=== PATIENT | male | born 1960 | race Two or more races ===

== ENCOUNTER 2018-07-03 11:15 | Outpatient (CLI) | payer MEDICARE, MEDICAID | END 2018-07-03 23:59 | disposition home or self-care (01) | LOC: WOU 11:15 | PROVIDERS: ATTEND Podiatrist Foot & Ankle Surgery | DX: E11.621 Type 2 diabetes mellitus with foot ulcer (principal); L97.414 Non-pressure chronic ulcer of right heel and midfoot with necrosis of bone; L97.514 Non-pressure chronic ulcer of other part of right foot with necrosis of bone; E11.610 Type 2 diabetes mellitus with diabetic neuropathic arthropathy; E11.42 Type 2 diabetes mellitus with diabetic polyneuropathy; E11.51 Type 2 diabetes mellitus with diabetic peripheral angiopathy without gangrene; I73.9 Peripheral vascular disease, unspecified; Z89.512 Acquired absence of left leg below knee; Z87.891 Personal history of nicotine dependence | CPT/HCPCS: 11044; 11047; A6402 ==

== ENCOUNTER 2018-07-17 11:05 | Outpatient (CLI) | payer MEDICARE, MEDICAID | END 2018-07-17 23:59 | disposition home or self-care (01) | LOC: WOU 11:05 | PROVIDERS: ATTEND Podiatrist Foot & Ankle Surgery | DX: E11.621 Type 2 diabetes mellitus with foot ulcer (principal); L97.414 Non-pressure chronic ulcer of right heel and midfoot with necrosis of bone; E11.610 Type 2 diabetes mellitus with diabetic neuropathic arthropathy; E11.51 Type 2 diabetes mellitus with diabetic peripheral angiopathy without gangrene; L97.514 Non-pressure chronic ulcer of other part of right foot with necrosis of bone; Z89.512 Acquired absence of left leg below knee; Z87.891 Personal history of nicotine dependence | CPT/HCPCS: 11044; A6402 ==

== ENCOUNTER 2018-07-21 08:30 | Outpatient (CLI) | payer MEDICARE, MEDICAID | END 2018-07-21 23:59 | disposition home or self-care (01) | LOC: WOU 08:30 | PROVIDERS: ATTEND Podiatrist Foot & Ankle Surgery | DX: E11.621 Type 2 diabetes mellitus with foot ulcer (principal); L97.413 Non-pressure chronic ulcer of right heel and midfoot with necrosis of muscle; L97.513 Non-pressure chronic ulcer of other part of right foot with necrosis of muscle; E11.610 Type 2 diabetes mellitus with diabetic neuropathic arthropathy; E11.51 Type 2 diabetes mellitus with diabetic peripheral angiopathy without gangrene; I73.9 Peripheral vascular disease, unspecified; Z89.512 Acquired absence of left leg below knee | CPT/HCPCS: 11043; A6402 ×2 ==

== ENCOUNTER 2018-07-24 11:05 | Outpatient (CLI) | payer MEDICARE, MEDICAID | END 2018-07-24 23:59 | disposition home or self-care (01) | LOC: WOU 11:05 | PROVIDERS: ATTEND Podiatrist Foot & Ankle Surgery | DX: E11.621 Type 2 diabetes mellitus with foot ulcer (principal); L97.413 Non-pressure chronic ulcer of right heel and midfoot with necrosis of muscle; L97.513 Non-pressure chronic ulcer of other part of right foot with necrosis of muscle; E11.610 Type 2 diabetes mellitus with diabetic neuropathic arthropathy; E11.51 Type 2 diabetes mellitus with diabetic peripheral angiopathy without gangrene; Z89.512 Acquired absence of left leg below knee | CPT/HCPCS: 11043; 97605; A6402 ==

== ENCOUNTER 2018-07-28 09:40 | Outpatient (CLI) | payer MEDICARE, MEDICAID | END 2018-07-28 23:59 | disposition home or self-care (01) | LOC: WOU 09:40 | PROVIDERS: ATTEND Podiatrist Foot & Ankle Surgery | DX: E11.621 Type 2 diabetes mellitus with foot ulcer (principal); L97.414 Non-pressure chronic ulcer of right heel and midfoot with necrosis of bone; L97.514 Non-pressure chronic ulcer of other part of right foot with necrosis of bone; E11.610 Type 2 diabetes mellitus with diabetic neuropathic arthropathy; I73.9 Peripheral vascular disease, unspecified; E11.51 Type 2 diabetes mellitus with diabetic peripheral angiopathy without gangrene; Z89.512 Acquired absence of left leg below knee | CPT/HCPCS: 11044; 97605; A6402 ==

== ENCOUNTER 2018-07-31 10:50 | Outpatient (CLI) | payer MEDICARE, MEDICAID | END 2018-07-31 23:59 | disposition home or self-care (01) | LOC: WOU 10:50 | PROVIDERS: ATTEND Podiatrist Foot & Ankle Surgery | DX: E11.621 Type 2 diabetes mellitus with foot ulcer (principal); L97.414 Non-pressure chronic ulcer of right heel and midfoot with necrosis of bone; L97.514 Non-pressure chronic ulcer of other part of right foot with necrosis of bone; E11.610 Type 2 diabetes mellitus with diabetic neuropathic arthropathy; E11.51 Type 2 diabetes mellitus with diabetic peripheral angiopathy without gangrene; Z87.891 Personal history of nicotine dependence; E11.42 Type 2 diabetes mellitus with diabetic polyneuropathy; Z89.512 Acquired absence of left leg below knee; Z79.84 Long term (current) use of oral hypoglycemic drugs; Z79.899 Other long term (current) drug therapy | CPT/HCPCS: 11044; 97605; A6402 ==

== ENCOUNTER 2018-08-04 09:30 | Outpatient (CLI) | payer MEDICARE, MEDICAID | END 2018-08-04 23:59 | disposition home or self-care (01) | LOC: WOU 09:30 | PROVIDERS: ATTEND Podiatrist Foot & Ankle Surgery | DX: E11.621 Type 2 diabetes mellitus with foot ulcer (principal); L97.414 Non-pressure chronic ulcer of right heel and midfoot with necrosis of bone; L97.514 Non-pressure chronic ulcer of other part of right foot with necrosis of bone; E11.610 Type 2 diabetes mellitus with diabetic neuropathic arthropathy; E11.51 Type 2 diabetes mellitus with diabetic peripheral angiopathy without gangrene; Z79.84 Long term (current) use of oral hypoglycemic drugs; I73.9 Peripheral vascular disease, unspecified; Z89.512 Acquired absence of left leg below knee; Z87.891 Personal history of nicotine dependence | CPT/HCPCS: 11044; 97605; A6402 ==

== ENCOUNTER 2018-08-07 10:45 | Outpatient (CLI) | payer MEDICARE, MEDICAID | END 2018-08-07 23:59 | disposition home or self-care (01) | LOC: WOU 10:45 | PROVIDERS: ATTEND Podiatrist Foot & Ankle Surgery | DX: E11.621 Type 2 diabetes mellitus with foot ulcer (principal); L97.414 Non-pressure chronic ulcer of right heel and midfoot with necrosis of bone; L97.514 Non-pressure chronic ulcer of other part of right foot with necrosis of bone; E11.610 Type 2 diabetes mellitus with diabetic neuropathic arthropathy; E11.51 Type 2 diabetes mellitus with diabetic peripheral angiopathy without gangrene; Z87.891 Personal history of nicotine dependence; Z89.512 Acquired absence of left leg below knee; E11.42 Type 2 diabetes mellitus with diabetic polyneuropathy; Z79.84 Long term (current) use of oral hypoglycemic drugs | CPT/HCPCS: 11044; 97605; A6402 ==

== ENCOUNTER 2018-08-11 10:00 | Outpatient (CLI) | payer MEDICARE, MEDICAID | END 2018-08-11 23:59 | disposition home or self-care (01) | LOC: WOU 10:00 | PROVIDERS: ATTEND Podiatrist Foot & Ankle Surgery | DX: E11.621 Type 2 diabetes mellitus with foot ulcer (principal); L97.414 Non-pressure chronic ulcer of right heel and midfoot with necrosis of bone; L97.514 Non-pressure chronic ulcer of other part of right foot with necrosis of bone; E11.610 Type 2 diabetes mellitus with diabetic neuropathic arthropathy; E11.51 Type 2 diabetes mellitus with diabetic peripheral angiopathy without gangrene; I73.9 Peripheral vascular disease, unspecified; Z89.512 Acquired absence of left leg below knee; Z87.891 Personal history of nicotine dependence | CPT/HCPCS: 11044; 97605-TC; A6402 ==

== ENCOUNTER 2018-08-14 10:45 | Outpatient (CLI) | payer MEDICARE, MEDICAID | END 2018-08-14 23:59 | disposition home or self-care (01) | LOC: WOU 10:45 | PROVIDERS: ATTEND Podiatrist Foot & Ankle Surgery | DX: E11.621 Type 2 diabetes mellitus with foot ulcer (principal); L97.514 Non-pressure chronic ulcer of other part of right foot with necrosis of bone; E11.610 Type 2 diabetes mellitus with diabetic neuropathic arthropathy; E11.51 Type 2 diabetes mellitus with diabetic peripheral angiopathy without gangrene; Z89.512 Acquired absence of left leg below knee; Z87.891 Personal history of nicotine dependence; Z79.84 Long term (current) use of oral hypoglycemic drugs | CPT/HCPCS: 11044; A6402 ==

== ENCOUNTER 2018-08-18 10:10 | Outpatient (CLI) | payer MEDICARE, MEDICAID | END 2018-08-18 23:59 | disposition home or self-care (01) | LOC: WOU 10:10 | PROVIDERS: ATTEND Podiatrist Foot & Ankle Surgery | DX: E11.621 Type 2 diabetes mellitus with foot ulcer (principal); L97.414 Non-pressure chronic ulcer of right heel and midfoot with necrosis of bone; L97.514 Non-pressure chronic ulcer of other part of right foot with necrosis of bone; E11.610 Type 2 diabetes mellitus with diabetic neuropathic arthropathy; E11.51 Type 2 diabetes mellitus with diabetic peripheral angiopathy without gangrene; Z79.84 Long term (current) use of oral hypoglycemic drugs | CPT/HCPCS: 11043; 87070; 87077; 87186; A6197; A6402 ×3 ==

== ENCOUNTER 2018-08-21 10:20 | Outpatient (CLI) | payer MEDICARE, MEDICAID | END 2018-08-21 23:59 | disposition home or self-care (01) | LOC: WOU 10:20 | PROVIDERS: ATTEND Podiatrist Foot & Ankle Surgery | DX: E11.621 Type 2 diabetes mellitus with foot ulcer (principal); L97.414 Non-pressure chronic ulcer of right heel and midfoot with necrosis of bone; L97.513 Non-pressure chronic ulcer of other part of right foot with necrosis of muscle; E11.610 Type 2 diabetes mellitus with diabetic neuropathic arthropathy; E11.51 Type 2 diabetes mellitus with diabetic peripheral angiopathy without gangrene; Z87.891 Personal history of nicotine dependence; Z89.512 Acquired absence of left leg below knee; Z79.84 Long term (current) use of oral hypoglycemic drugs | CPT/HCPCS: 11043; 11044; 97605; A6209; A6402 ==

== ENCOUNTER 2018-08-25 10:45 | Outpatient (CLI) | payer MEDICARE, MEDICAID | END 2018-08-25 23:59 | disposition home or self-care (01) | LOC: WOU 10:45 | PROVIDERS: ATTEND Podiatrist Foot & Ankle Surgery | DX: E11.621 Type 2 diabetes mellitus with foot ulcer (principal); L97.414 Non-pressure chronic ulcer of right heel and midfoot with necrosis of bone; L97.513 Non-pressure chronic ulcer of other part of right foot with necrosis of muscle; E11.610 Type 2 diabetes mellitus with diabetic neuropathic arthropathy; E11.51 Type 2 diabetes mellitus with diabetic peripheral angiopathy without gangrene; I73.9 Peripheral vascular disease, unspecified; Z79.84 Long term (current) use of oral hypoglycemic drugs | CPT/HCPCS: 11043; 11044; 97605; A6209; A6402 ×2; 11042; 15275 ==

== ENCOUNTER 2018-08-28 10:35 | Outpatient (CLI) | payer MEDICARE, MEDICAID | END 2018-08-28 23:59 | disposition home or self-care (01) | LOC: WOU 10:35 | PROVIDERS: ATTEND Podiatrist Foot & Ankle Surgery | DX: E11.621 Type 2 diabetes mellitus with foot ulcer (principal); L97.414 Non-pressure chronic ulcer of right heel and midfoot with necrosis of bone; L97.512 Non-pressure chronic ulcer of other part of right foot with fat layer exposed; E11.610 Type 2 diabetes mellitus with diabetic neuropathic arthropathy; E11.51 Type 2 diabetes mellitus with diabetic peripheral angiopathy without gangrene; Z89.512 Acquired absence of left leg below knee; Z79.84 Long term (current) use of oral hypoglycemic drugs | CPT/HCPCS: 11042; 11044; 97605; A6209; A6402 ==

== ENCOUNTER 2018-09-02 10:50 | Outpatient (CLI) | payer MEDICARE, MEDICAID | END 2018-09-02 23:59 | disposition home or self-care (01) | LOC: WOU 10:50 | PROVIDERS: ATTEND Podiatrist Foot & Ankle Surgery | DX: E11.621 Type 2 diabetes mellitus with foot ulcer (principal); L97.414 Non-pressure chronic ulcer of right heel and midfoot with necrosis of bone; L97.512 Non-pressure chronic ulcer of other part of right foot with fat layer exposed; E11.610 Type 2 diabetes mellitus with diabetic neuropathic arthropathy; E11.51 Type 2 diabetes mellitus with diabetic peripheral angiopathy without gangrene; I73.9 Peripheral vascular disease, unspecified; Z79.84 Long term (current) use of oral hypoglycemic drugs | CPT/HCPCS: 11042; 11044; 97605; A6209; A6402 ==

== ENCOUNTER 2018-09-04 10:45 | Outpatient (CLI) | payer MEDICARE, MEDICAID | END 2018-09-04 23:59 | disposition home or self-care (01) | LOC: WOU 10:45 | PROVIDERS: ATTEND Podiatrist Foot & Ankle Surgery | DX: E11.621 Type 2 diabetes mellitus with foot ulcer (principal); L97.414 Non-pressure chronic ulcer of right heel and midfoot with necrosis of bone; L97.512 Non-pressure chronic ulcer of other part of right foot with fat layer exposed; E11.51 Type 2 diabetes mellitus with diabetic peripheral angiopathy without gangrene; E11.610 Type 2 diabetes mellitus with diabetic neuropathic arthropathy; Z89.512 Acquired absence of left leg below knee; Z79.84 Long term (current) use of oral hypoglycemic drugs | CPT/HCPCS: 11042; 11044; 97605; A6209; A6402 ==

== ENCOUNTER 2018-09-08 10:10 | Outpatient (CLI) | payer MEDICARE, MEDICAID | END 2018-09-08 23:59 | disposition home or self-care (01) | LOC: WOU 10:10 | PROVIDERS: ATTEND Podiatrist Foot & Ankle Surgery | DX: E11.621 Type 2 diabetes mellitus with foot ulcer (principal); L97.414 Non-pressure chronic ulcer of right heel and midfoot with necrosis of bone; E11.610 Type 2 diabetes mellitus with diabetic neuropathic arthropathy; E11.51 Type 2 diabetes mellitus with diabetic peripheral angiopathy without gangrene; Z79.84 Long term (current) use of oral hypoglycemic drugs; I73.9 Peripheral vascular disease, unspecified; Z89.512 Acquired absence of left leg below knee | CPT/HCPCS: 11043; A6402 ×2 ==

== ENCOUNTER 2018-09-09 11:22 | Outpatient (CLI) | payer MEDICAID, MEDICARE | END 2018-09-09 23:59 | disposition home or self-care (01) | LOC: RAD 11:22 | PROVIDERS: ATTEND Podiatrist Foot & Ankle Surgery | DX: S92.191A Other fracture of right talus, initial encounter for closed fracture (principal); S82.291A Other fracture of shaft of right tibia, initial encounter for closed fracture; E11.621 Type 2 diabetes mellitus with foot ulcer; A52.16 Charcot's arthropathy (tabetic); X58.XXXA Exposure to other specified factors, initial encounter; Y93.89 Activity, other specified; Y92.89 Other specified places as the place of occurrence of the external cause; Y99.8 Other external cause status | CPT/HCPCS: 73630-TC ==

== ENCOUNTER 2018-09-11 10:48 | Outpatient (CLI) | payer MEDICARE | END 2018-09-11 23:59 | disposition home or self-care (01) | LOC: WOU 10:48 | PROVIDERS: ATTEND Podiatrist Foot & Ankle Surgery | DX: E11.621 Type 2 diabetes mellitus with foot ulcer (principal); L97.414 Non-pressure chronic ulcer of right heel and midfoot with necrosis of bone; L97.518 Non-pressure chronic ulcer of other part of right foot with other specified severity; E11.51 Type 2 diabetes mellitus with diabetic peripheral angiopathy without gangrene; E11.610 Type 2 diabetes mellitus with diabetic neuropathic arthropathy; Z89.512 Acquired absence of left leg below knee; Z87.891 Personal history of nicotine dependence; Z79.82 Long term (current) use of aspirin; Z79.899 Other long term (current) drug therapy | CPT/HCPCS: 11044; A6402 ×3 ==

== ENCOUNTER 2018-09-15 10:30 | Outpatient (CLI) | payer MEDICARE, MEDICAID | END 2018-09-15 23:59 | disposition home health service (06) | LOC: WOU 10:30 | PROVIDERS: ATTEND Podiatrist Foot & Ankle Surgery | DX: E11.621 Type 2 diabetes mellitus with foot ulcer (principal); L97.414 Non-pressure chronic ulcer of right heel and midfoot with necrosis of bone; L97.518 Non-pressure chronic ulcer of other part of right foot with other specified severity; E11.610 Type 2 diabetes mellitus with diabetic neuropathic arthropathy; E11.51 Type 2 diabetes mellitus with diabetic peripheral angiopathy without gangrene; Z79.84 Long term (current) use of oral hypoglycemic drugs; I73.9 Peripheral vascular disease, unspecified; Z89.512 Acquired absence of left leg below knee; Z87.891 Personal history of nicotine dependence | CPT/HCPCS: 11044; 97605; A6209; A6402 ==

== ENCOUNTER 2018-09-18 10:20 | Outpatient (CLI) | payer MEDICARE, MEDICAID | END 2018-09-18 23:59 | disposition home health service (06) | LOC: WOU 10:20 | PROVIDERS: ATTEND Podiatrist Foot & Ankle Surgery | DX: E11.621 Type 2 diabetes mellitus with foot ulcer (principal); L97.414 Non-pressure chronic ulcer of right heel and midfoot with necrosis of bone; E11.610 Type 2 diabetes mellitus with diabetic neuropathic arthropathy; E11.51 Type 2 diabetes mellitus with diabetic peripheral angiopathy without gangrene; Z89.512 Acquired absence of left leg below knee; Z87.891 Personal history of nicotine dependence; Z79.84 Long term (current) use of oral hypoglycemic drugs | CPT/HCPCS: 11044; 97605; A6402 ==

== ENCOUNTER 2018-09-22 11:00 | Outpatient (CLI) | payer MEDICARE, MEDICAID | END 2018-09-22 23:59 | disposition home health service (06) | LOC: WOU 11:00 | PROVIDERS: ATTEND Podiatrist Foot & Ankle Surgery | DX: E11.621 Type 2 diabetes mellitus with foot ulcer (principal); L97.414 Non-pressure chronic ulcer of right heel and midfoot with necrosis of bone; E11.610 Type 2 diabetes mellitus with diabetic neuropathic arthropathy; E11.51 Type 2 diabetes mellitus with diabetic peripheral angiopathy without gangrene; Z79.84 Long term (current) use of oral hypoglycemic drugs; I73.9 Peripheral vascular disease, unspecified; Z89.512 Acquired absence of left leg below knee | CPT/HCPCS: 11044; 97605; A6402 ==

== ENCOUNTER 2018-09-25 11:30 | Outpatient (CLI) | payer MEDICARE, MEDICAID | END 2018-09-25 23:59 | disposition home health service (06) | LOC: WOU 11:30 | PROVIDERS: ATTEND Podiatrist Foot & Ankle Surgery | DX: E11.621 Type 2 diabetes mellitus with foot ulcer (principal); L97.414 Non-pressure chronic ulcer of right heel and midfoot with necrosis of bone; E11.610 Type 2 diabetes mellitus with diabetic neuropathic arthropathy; E11.51 Type 2 diabetes mellitus with diabetic peripheral angiopathy without gangrene; I73.9 Peripheral vascular disease, unspecified; Z89.512 Acquired absence of left leg below knee; Z87.891 Personal history of nicotine dependence; Z79.84 Long term (current) use of oral hypoglycemic drugs; Z79.899 Other long term (current) drug therapy | CPT/HCPCS: 11044; A6209; A6402 ==

== ENCOUNTER 2018-09-29 10:55 | Outpatient (CLI) | payer MEDICARE, MEDICAID | END 2018-09-29 23:59 | disposition home health service (06) | LOC: WOU 10:55 | PROVIDERS: ATTEND Podiatrist Foot & Ankle Surgery | DX: E11.621 Type 2 diabetes mellitus with foot ulcer (principal); L97.414 Non-pressure chronic ulcer of right heel and midfoot with necrosis of bone; E11.610 Type 2 diabetes mellitus with diabetic neuropathic arthropathy; E11.51 Type 2 diabetes mellitus with diabetic peripheral angiopathy without gangrene; I73.9 Peripheral vascular disease, unspecified; Z79.84 Long term (current) use of oral hypoglycemic drugs; Z89.512 Acquired absence of left leg below knee | CPT/HCPCS: 11044; A6209; A6402 ==

== ENCOUNTER 2018-10-06 10:52 | Outpatient (CLI) | payer MEDICARE, MEDICAID | END 2018-10-06 23:59 | disposition home health service (06) | LOC: WOU 10:52 | PROVIDERS: ATTEND Podiatrist Foot & Ankle Surgery | DX: E11.621 Type 2 diabetes mellitus with foot ulcer (principal); E11.622 Type 2 diabetes mellitus with other skin ulcer; L97.414 Non-pressure chronic ulcer of right heel and midfoot with necrosis of bone; L97.911 Non-pressure chronic ulcer of unspecified part of right lower leg limited to breakdown of skin; E11.610 Type 2 diabetes mellitus with diabetic neuropathic arthropathy; E11.51 Type 2 diabetes mellitus with diabetic peripheral angiopathy without gangrene; I73.9 Peripheral vascular disease, unspecified; Z79.84 Long term (current) use of oral hypoglycemic drugs; Z89.512 Acquired absence of left leg below knee; Z87.891 Personal history of nicotine dependence | CPT/HCPCS: 11044; A6209; A6402 ==

== ENCOUNTER 2018-10-13 11:00 | Outpatient (CLI) | payer MEDICARE, MEDICAID | END 2018-10-13 23:59 | disposition home health service (06) | LOC: WOU 11:00 | PROVIDERS: ATTEND Podiatrist Foot & Ankle Surgery | DX: E11.621 Type 2 diabetes mellitus with foot ulcer (principal); L97.414 Non-pressure chronic ulcer of right heel and midfoot with necrosis of bone; E11.622 Type 2 diabetes mellitus with other skin ulcer; L97.911 Non-pressure chronic ulcer of unspecified part of right lower leg limited to breakdown of skin; E11.610 Type 2 diabetes mellitus with diabetic neuropathic arthropathy; E11.51 Type 2 diabetes mellitus with diabetic peripheral angiopathy without gangrene; I73.9 Peripheral vascular disease, unspecified; Z79.84 Long term (current) use of oral hypoglycemic drugs; Z89.512 Acquired absence of left leg below knee | CPT/HCPCS: 11044; A6209; A6402 ==

== ENCOUNTER 2018-10-14 10:00 | Outpatient (CLI) | payer MEDICARE, MEDICAID | END 2018-10-14 23:59 | disposition home or self-care (01) | LOC: WOU 10:00 | PROVIDERS: ATTEND Podiatrist Foot & Ankle Surgery | DX: E11.621 Type 2 diabetes mellitus with foot ulcer (principal); L97.414 Non-pressure chronic ulcer of right heel and midfoot with necrosis of bone; E11.622 Type 2 diabetes mellitus with other skin ulcer; L97.911 Non-pressure chronic ulcer of unspecified part of right lower leg limited to breakdown of skin; E11.610 Type 2 diabetes mellitus with diabetic neuropathic arthropathy; E11.59 Type 2 diabetes mellitus with other circulatory complications; I73.9 Peripheral vascular disease, unspecified; Z79.84 Long term (current) use of oral hypoglycemic drugs | CPT/HCPCS: A6209; A6402 ×2; G0463 ==

== ENCOUNTER 2018-10-16 11:25 | Outpatient (CLI) | payer MEDICARE, MEDICAID | END 2018-10-16 23:59 | disposition home health service (06) | LOC: WOU 11:25 | PROVIDERS: ATTEND Podiatrist Foot & Ankle Surgery | DX: E11.621 Type 2 diabetes mellitus with foot ulcer (principal); L97.414 Non-pressure chronic ulcer of right heel and midfoot with necrosis of bone; E11.610 Type 2 diabetes mellitus with diabetic neuropathic arthropathy; E11.42 Type 2 diabetes mellitus with diabetic polyneuropathy; Z89.512 Acquired absence of left leg below knee; Z79.84 Long term (current) use of oral hypoglycemic drugs; Z79.899 Other long term (current) drug therapy | CPT/HCPCS: 11044; 97605; A6402 ==

== ENCOUNTER 2018-10-20 11:10 | Outpatient (CLI) | payer MEDICARE, MEDICAID | END 2018-10-20 23:59 | disposition home health service (06) | LOC: WOU 11:10 | PROVIDERS: ATTEND Podiatrist Foot & Ankle Surgery | DX: E11.621 Type 2 diabetes mellitus with foot ulcer (principal); L97.414 Non-pressure chronic ulcer of right heel and midfoot with necrosis of bone; E11.610 Type 2 diabetes mellitus with diabetic neuropathic arthropathy; E11.51 Type 2 diabetes mellitus with diabetic peripheral angiopathy without gangrene; Z79.84 Long term (current) use of oral hypoglycemic drugs; I73.9 Peripheral vascular disease, unspecified; Z89.512 Acquired absence of left leg below knee | CPT/HCPCS: 11044; 97605; A6402 ==

== ENCOUNTER 2018-10-23 11:55 | Outpatient (CLI) | payer MEDICARE, MEDICAID | END 2018-10-23 23:59 | disposition home or self-care (01) | LOC: WOU 11:55 | PROVIDERS: ATTEND Podiatrist Foot & Ankle Surgery | DX: E11.621 Type 2 diabetes mellitus with foot ulcer (principal); L97.414 Non-pressure chronic ulcer of right heel and midfoot with necrosis of bone; E11.622 Type 2 diabetes mellitus with other skin ulcer; L97.911 Non-pressure chronic ulcer of unspecified part of right lower leg limited to breakdown of skin; E11.610 Type 2 diabetes mellitus with diabetic neuropathic arthropathy; E11.51 Type 2 diabetes mellitus with diabetic peripheral angiopathy without gangrene; Z89.512 Acquired absence of left leg below knee; Z79.84 Long term (current) use of oral hypoglycemic drugs | CPT/HCPCS: 11044; 97605; A6402 ==

== ENCOUNTER 2018-10-27 11:00 | Outpatient (CLI) | payer MEDICARE, MEDICAID | END 2018-10-27 23:59 | disposition home or self-care (01) | LOC: WOU 11:00 | PROVIDERS: ATTEND Podiatrist Foot & Ankle Surgery | DX: E11.621 Type 2 diabetes mellitus with foot ulcer (principal); L97.414 Non-pressure chronic ulcer of right heel and midfoot with necrosis of bone; E11.610 Type 2 diabetes mellitus with diabetic neuropathic arthropathy; I73.9 Peripheral vascular disease, unspecified; E11.51 Type 2 diabetes mellitus with diabetic peripheral angiopathy without gangrene; Z79.84 Long term (current) use of oral hypoglycemic drugs; Z89.512 Acquired absence of left leg below knee | CPT/HCPCS: 11044; 97605-TC ==

== ENCOUNTER 2018-10-30 11:45 | Outpatient (CLI) | payer MEDICARE, MEDICAID | END 2018-10-30 23:59 | disposition home or self-care (01) | LOC: WOU 11:45 | PROVIDERS: ATTEND Podiatrist Foot & Ankle Surgery | DX: E11.621 Type 2 diabetes mellitus with foot ulcer (principal); L97.414 Non-pressure chronic ulcer of right heel and midfoot with necrosis of bone; E11.622 Type 2 diabetes mellitus with other skin ulcer; L97.911 Non-pressure chronic ulcer of unspecified part of right lower leg limited to breakdown of skin; E11.610 Type 2 diabetes mellitus with diabetic neuropathic arthropathy; E11.51 Type 2 diabetes mellitus with diabetic peripheral angiopathy without gangrene; I73.9 Peripheral vascular disease, unspecified; Z89.512 Acquired absence of left leg below knee; E11.42 Type 2 diabetes mellitus with diabetic polyneuropathy; Z86.718 Personal history of other venous thrombosis and embolism; Z79.84 Long term (current) use of oral hypoglycemic drugs; Z79.899 Other long term (current) drug therapy | CPT/HCPCS: 11044; 87070-TC; 87075-TC; 87102-TC; 87186-TC; 88305-TC; 88311-TC; 88312-TC; 97605-TC ==

== ENCOUNTER 2018-11-03 12:20 | Outpatient (CLI) | payer MEDICARE, MEDICAID | END 2018-11-03 23:59 | disposition home or self-care (01) | LOC: WOU 12:20 | PROVIDERS: ATTEND Podiatrist Foot & Ankle Surgery | DX: E11.621 Type 2 diabetes mellitus with foot ulcer (principal); L97.414 Non-pressure chronic ulcer of right heel and midfoot with necrosis of bone; E11.610 Type 2 diabetes mellitus with diabetic neuropathic arthropathy; E11.51 Type 2 diabetes mellitus with diabetic peripheral angiopathy without gangrene; I73.9 Peripheral vascular disease, unspecified; E11.69 Type 2 diabetes mellitus with other specified complication; M86.171 Other acute osteomyelitis, right ankle and foot; Z79.84 Long term (current) use of oral hypoglycemic drugs; Z89.512 Acquired absence of left leg below knee | CPT/HCPCS: 11044; 97605-TC ==

== ENCOUNTER 2018-11-06 11:26 | Outpatient (CLI) | payer MEDICARE, MEDICAID | END 2018-11-06 23:59 | disposition home or self-care (01) | LOC: WOU 11:26 | PROVIDERS: ATTEND Podiatrist Foot & Ankle Surgery | DX: E11.621 Type 2 diabetes mellitus with foot ulcer (principal); L97.414 Non-pressure chronic ulcer of right heel and midfoot with necrosis of bone; E11.610 Type 2 diabetes mellitus with diabetic neuropathic arthropathy; E11.51 Type 2 diabetes mellitus with diabetic peripheral angiopathy without gangrene; Z89.512 Acquired absence of left leg below knee; Z87.891 Personal history of nicotine dependence; M24.374 Pathological dislocation of right foot, not elsewhere classified; Z79.84 Long term (current) use of oral hypoglycemic drugs | CPT/HCPCS: 11043; 73630-TC; 97605-TC ==

== ENCOUNTER 2018-11-10 10:30 | Outpatient (CLI) | payer MEDICARE, MEDICAID | END 2018-11-10 23:59 | disposition home or self-care (01) | LOC: WOU 10:30 | PROVIDERS: ATTEND Podiatrist Foot & Ankle Surgery | DX: E11.621 Type 2 diabetes mellitus with foot ulcer (principal); L97.414 Non-pressure chronic ulcer of right heel and midfoot with necrosis of bone; E11.69 Type 2 diabetes mellitus with other specified complication; M86.171 Other acute osteomyelitis, right ankle and foot; E11.51 Type 2 diabetes mellitus with diabetic peripheral angiopathy without gangrene; E11.610 Type 2 diabetes mellitus with diabetic neuropathic arthropathy; Z79.84 Long term (current) use of oral hypoglycemic drugs; I73.9 Peripheral vascular disease, unspecified; Z89.512 Acquired absence of left leg below knee | CPT/HCPCS: 11044 ==

== ENCOUNTER 2018-11-20 11:30 | Outpatient (CLI) | payer MEDICARE, MEDICAID | END 2018-11-20 23:59 | disposition home health service (06) | LOC: WOU 11:30 | PROVIDERS: ATTEND Podiatrist Foot & Ankle Surgery | DX: E11.621 Type 2 diabetes mellitus with foot ulcer (principal); L97.414 Non-pressure chronic ulcer of right heel and midfoot with necrosis of bone; E11.610 Type 2 diabetes mellitus with diabetic neuropathic arthropathy; E11.52 Type 2 diabetes mellitus with diabetic peripheral angiopathy with gangrene; I96 Gangrene, not elsewhere classified; E11.622 Type 2 diabetes mellitus with other skin ulcer; L97.313 Non-pressure chronic ulcer of right ankle with necrosis of muscle; Z89.512 Acquired absence of left leg below knee; Z79.84 Long term (current) use of oral hypoglycemic drugs; Z79.899 Other long term (current) drug therapy; E11.69 Type 2 diabetes mellitus with other specified complication; M86.171 Other acute osteomyelitis, right ankle and foot | CPT/HCPCS: A6253; G0463 ==